=== PATIENT | male | born 1935 | race Caucasian/White ===

== ENCOUNTER 2016-08-21 17:48 | Emergency (ER) | payer MEDICARE ==
[2016-08-21 19:09] LABS: HEMOGLOBIN 11.9 gm/dl (14.0-17.5); RED BLOOD COUNT 4.1 M/UL (4.20-5.50); WHITE BLOOD COUNT 10.3 K/UL (4.5-11.0)
== END 2016-08-21 21:17 | disposition home or self-care (01) ==
LOC: ER1 17:48
PROVIDERS: Emergency Medicine
DX: N39.0 Urinary tract infection, site not specified (principal); R31.9 Hematuria, unspecified
CPT/HCPCS: 36415; 80053; 81001; 83605; 83690; 85025; 85610; 85730; 87077; 87086; 87186; 99283

== ENCOUNTER 2016-08-27 09:07 | Emergency (ER) | payer MEDICARE | END 2016-08-27 11:13 | disposition home or self-care (01) | LOC: ER1 09:07 | DX: Z46.6 Encounter for fitting and adjustment of urinary device (principal); I10 Essential (primary) hypertension; I51.9 Heart disease, unspecified; Z95.5 Presence of coronary angioplasty implant and graft | CPT/HCPCS: 36415; 81001; 99283 ==

== ENCOUNTER 2016-09-21 07:44 | Observation (INO) | payer MEDICARE ==
[~2016-09-21] VITALS: Ht 170.2 cm; Wt 72.6 kg
[2016-09-21 09:01] LABS: RED BLOOD COUNT 4.06 M/UL (4.20-5.50); WHITE BLOOD COUNT 10.8 K/UL (4.5-11.0)
[2016-09-22 04:20] LABS: HEMOGLOBIN 9.4 gm/dl (14.0-17.5); RED BLOOD COUNT 3.25 M/UL (4.20-5.50); WHITE BLOOD COUNT 13.9 K/UL (4.5-11.0)
[2016-09-23 06:41] LABS: HEMOGLOBIN 9.9 gm/dl (14.0-17.5); RED BLOOD COUNT 3.41 M/UL (4.20-5.50)
[2016-09-23 06:54] LABS: BUN/CREATININE RATIO 25 (0-10)
[2016-09-23] MEDS ORDERED: NORVASC 5 MG TAB5 MG PO (12:05)
[2016-09-23] MEDS ORDERED: ASPIRIN EC81 MG PO (12:05)
[2016-09-23] MEDS ORDERED: LIPITOR TAB 2020 MG PO (12:05)
[2016-09-23] MEDS ORDERED: TOPROL XL50 MG PO (12:06)
[2016-09-23] MEDS ORDERED: ZESTRIL20 MG PO (12:06)
[2016-09-23] MEDS ORDERED: PRILOSEC OTC20 MG PO (12:07)
[2016-09-23] MEDS ORDERED: NAPROSYN500 MG PO (12:08)
== END 2016-09-23 13:54 | disposition home or self-care (01) ==
LOC: ER1 07:44 → ZEROF 15:10 → MED SURG 4 15:10
PROVIDERS: Physician Assistant; ADMIT Family Medicine
DX: I25.110 Atherosclerotic heart disease of native coronary artery with unstable angina pectoris (principal); I10 Essential (primary) hypertension; D49.4 Neoplasm of unspecified behavior of bladder; R31.9 Hematuria, unspecified; R91.8 Other nonspecific abnormal finding of lung field; R63.4 Abnormal weight loss; R73.9 Hyperglycemia, unspecified; E78.5 Hyperlipidemia, unspecified; K57.90 Diverticulosis of intestine, part unspecified, without perforation or abscess without bleeding; M54.10 Radiculopathy, site unspecified; M79.1 Myalgia; M15.9 Polyosteoarthritis, unspecified; Z95.5 Presence of coronary angioplasty implant and graft; Z95.2 Presence of prosthetic heart valve; Z85.828 Personal history of other malignant neoplasm of skin; Z87.891 Personal history of nicotine dependence; Z80.8 Family history of malignant neoplasm of other organs or systems
CPT/HCPCS: ECHO; 36415; 71010; 78452; 80053; 80061; 81001; 82330; 82550; 82553; 83036; 83605; 83874; 84443; 84484; 85025; 85027; 87040; 93005; 93017; 93306; 96360; 99285; A9502; G0378; J2785; J7050; Q9965